=== PATIENT | female | born 1975 | race Caucasian/White ===

== ENCOUNTER 2016-08-03 03:06 | Observation (INO) | payer OTHER ==
[2016-08-03 03:20] VITALS: BMI 56.5
[2016-08-03] MEDS ORDERED: ONDANSETRON 4 MG/2 ML VIAL IVPUSH ONE (03:35)
[2016-08-03] MEDS ORDERED: morphine CARPU-JECT 4 MG/1 ML DISP.SYRIN IVPUSH ONE (03:35)
[2016-08-03] MEDS ORDERED: SODIUM CHLORIDE 1,000 ML IV STA (03:35)
[2016-08-03] MEDS ORDERED: ONDANSETRON 4 MG/2 ML VIAL ONE (03:39)
[2016-08-03] MEDS ORDERED: morphine CARPU-JECT 2 MG/1 ML DISP.SYRIN ONE (03:39)
[2016-08-03 03:45] LABS: BASOPHIL 0.7 % (0-2.0); EOSINOPHIL 3.7 % (0-4.5); MCH 25.2 pg (25.7-33.7); MCHC 32.5 g/dl (32.0-36.0); MEAN CELL VOLUME 77.7 fl (80-96); MEAN PLT VOLUME 7.5 fl (7.5-11.1); NEUTROPHILS 65.6 % (42.8-82.8); PLATELET COUNT 242 K/MM3 (134-434); RDW 15.7 % (11.6-15.6); WHITE BLOOD COUNT 7.1 K/mm3 (4.0-10.0)
[2016-08-03 03:54] LABS: URINE APPEARANCE SLCLOUDY; URINE BILIRUBIN NEGATIVE (NEGATIVE); URINE COLOR LTYELLOW; URINE GLUCOSE (UA) NEGATIVE (NEGATIVE); URINE KETONE NEGATIVE (NEGATIVE); URINE NITRITE NEGATIVE (NEGATIVE); URINE UROBILINOGEN NEGATIVE E.U./dl (0.2-1.0)
[2016-08-03 03:58] LABS: URINE BLOOD 3+ (NEGATIVE); URINE LEUK ESTERASE 1+ (NEGATIVE); URINE PROTEIN 2+ (NEGATIVE)
[2016-08-03 04:00] LABS: URINE BACTERIA RARE /hpf (NONE SEEN); URINE MUCUS FEW; URINE RBC 420 /hpf (0-3); URINE WBC 20 /hpf (3-5)
[2016-08-03 04:23] LABS: ALBUMIN 3.5 g/dl (3.4-5.0); BILIRUBIN,TOTAL 0.3 mg/dL (0.2-1.0); CALCIUM 8.6 mg/dL (8.5-10.1); COCKROFT - GAULT 168.674; CREATININE 1.1 mg/dL (0.55-1.02); TOT PROT 7.4 g/dl (6.4-8.2)
--- NOTE | 2016-08-03 05:46 | PDOC ---
History of Present Illness - General Chief Complaint: Pain, Acute Stated Complaint: SIDE PAIN/VOMITING Time Seen by Provider: 08/03/16 03:20 History Source: Patient Exam Limitations: No Limitations - History of Present Illness Travel History: No Initial Comments: 08/03/16 05:55 41yo Female patient w/PmHx: Morbid Obesity, Recurrent Renal Colic with stent placement presents to ED c/o Lt flank pain radiating to Lt groin beginning tonight. Patient states she was woken up out of her sleep. Associated chills, vomiting. Patient denies any other complaints at this time. Quality: reports: moderate, sharpness Abdominal Pain Onset Location: reports: flank (Lt) Pain Radiation: reports: groin Activities at Onset: reports: sleep Treatment Prior to Arrive: worse with: analgesics, antacids, cold pack, heat, laxative, enema, other Aggravating Factors: worse with: None, Defecation, Eating, Emotional upset, Exertion, Terril, Movement, Voiding, Change in position Alleviating Factors: worse with: None, Belching, Shallow Breathing, Defecation, Eating, Holding Breath, Passing Gas, Change in Position, Rest, Voiding, Vomiting Past History - Travel Traveled outside of the country in the last 30 days: No Close contact w/someone who was outside of country & ill: No - Past Medical History Allergies/Adverse Reactions: Allergies Allergy/AdvReac Type Severity Reaction Status Date / Time tamsulosin HCl [From Flomax] Allergy Severe Swelling Verified 08/03/16 04:05 meperidine HCl [From Demerol] Allergy Intermediate Swelling Verified 08/03/16 04 :05 ciprofloxacin Allergy Verified 08/03/16 04:05 Anemia: Yes Asthma: No Cancer: No Cardiac Disorders: No CVA: No COPD: No CHF: No Dementia: No Diabetes: No GI Disorders: No Disorders: Yes (KIDNEY STONES x4 with stents) HTN: No Hypercholesterolemia: No Kidney Stones: Yes Liver Disease: No Suicide Attempt (Hx): No Seizures: No Thyroid Disease: No - Surgical History Abdominal Surgery: No Appendectomy: No Cardiac Surgery: No Cholecystectomy: No Lung Surgery: No Neurologic Surgery: No Orthopedic Surgery: No - Reproductive History (#): 5 Para: 4 Spontaneous : 1 - Immunization History Immunization Up to Date: Yes - Psycho/Social/Smoking Cessation Hx Anxiety: No Suicidal Ideation: No Smoking Status: No Smoking History: Never smoked Have you smoked in the past 12 months: No Number of Cigarettes Smoked Daily: 0 Information on smoking cessation initiated: No Hx Alcohol Use: No Drug/Substance Use Hx: No Substance Use Type: None Abd/GI Specific PMHX - Complaint Specific PMHX Colitis: No Diverticulitis: No Gall Bladder Disease: No GERD: No Hepatitis: No Irritable Bowel Synd (IBS): No Pancreatitis: No GI Ulcer Disease: No Review of Systems - Review of Systems Able to Perform ROS?: Yes Is the patient limited Estonian proficient: No Constitutional: Yes: Chills. No: Fever Respiratory: No: Cough, Shortness of Breath, Stridor, Wheezing Cardiac (ROS): No: Chest Pain, Palpitations, Chest Tightness ABD/GI: Yes: Nausea, Vomiting, Abdominal cramping (Lt Groin). No: Constipated, Diarrhea, Poor Appetite, Poor Fluid Intake : Yes: Dysuria, Flank Pain (Lt). No: Burning, Hematuria Musculoskeletal: Yes: Back Pain All Other Systems: Reviewed and Negative *Physical Exam - Vital Signs Last Vital Signs Temp Pulse Resp BP Pulse Ox 98.9 F 92 H 20 149/76 98 08/03/16 03:18 08/03/16 03:18 08/03/16 03:18 08/03/16 03:18 08/03/16 03:18 - Physical Exam General Appearance: Yes: Nourished, Appropriately Dressed, Apparent Distress, Moderate Distress. No: Mild Distress, Severe Distress Neck: positive: Trachea midline, Supple. negative: Lymphadenopathy (R), Lymphadenopathy (L) Respiratory/Chest: positive: Lungs Clear, Normal Breath Sounds. negative: Chest Tender, Respiratory Distress, Accessory Muscle Use, Labored Respiration, Rapid RR Cardiovascular: positive: Regular Rhythm, Regular Rate Gastrointestinal/Abdominal: positive: Normal Bowel Sounds, Soft. negative: Distended, Guarding, Rebound, Tenderness Musculoskeletal: positive: Normal Inspection, CVA Tenderness, CVA Tenderness (L) . negative: CVA Tenderness (R), Decreased Range of Motion, Vertebral Tenderness Extremity: positive: Normal Capillary Refill, Normal Inspection, Normal Range of Motion. negative: Pedal Edema, Swelling, Calf Tenderness, Erythema, Inflammation Integumentary: positive: Normal Color, Dry, Warm Neurologic: positive: skin diver II-XII NML intact, Fully Oriented, Alert, Normal Mood/ Affect, Normal Response, Motor Strength 07/04 ED Treatment Course - LABORATORY CBC & Chemistry Diagram: 08/03/16 03:25 08/03/16 03:25 - ADDITIONAL ORDERS Additional order review: Laboratory Results 08/03/16 08/03/16 03:25 03:25 Sodium 142 Potassium 4.1 Chloride 109 H Carbon Dioxide 27 Anion Gap 6 L BUN 17 Creatinine 1.1 H Creat Clearance w eGFR 54.74 Random Glucose 111 H D Calcium 8.6 Total Bilirubin 0.3 AST 14 L ALT 21 Alkaline Phosphatase 79 D Total Protein 7.4 Albumin 3.5 Urine Color Ltyellow Urine Appearance Slcloudy Urine pH 5.0 Urine Protein 2+ H Urine Glucose (UA) Negative Urine Ketones Negative Urine Blood 3+ H Urine Nitrite Negative Urine Bilirubin Negative Urine Urobilinogen Negative Ur Leukocyte Esterase 1+ H Urine RBC 420 Urine WBC 20 Ur Epithelial Cells Rare Urine Bacteria Rare Urine Mucus Few Urine HCG, Qual Negative 08/03/16 03:25 RBC 4.41 MCV 77.7 L MCHC 32.5 RDW 15.7 H MPV 7.5 Neutrophils % 65.6 D Lymphocytes % 24.3 D Monocytes % 5.7 D Eosinophils % 3.7 D Basophils % 0.7 - RADIOLOGY Radiology Studies Ordered: Category Date Time Status ABDOMEN & PELVIS CT W/O CONTR [CT] Stat CT Scan 08/03/16 03:35 Taken - Medications Given in the ED: ED Medications Discontinued Medications Generic Name Dose Route Start Last Admin Trade Name Freq PRN Reason Stop Dose Admin Sodium Chloride 1,000 mls @ 1,000 mls/hr 08/03/16 03:35 08/03/16 03:47 Normal Saline - IV 08/03/16 04:34 1,000 mls/hr ASDIR STA Administration Morphine Sulfate 4 mg 08/03/16 03:35 08/03/16 03:47 Morphine Injection - IVPUSH 08/03/16 03:36 4 mg ONCE ONE Administration Ondansetron HCl 4 mg 08/03/16 03:35 08/03/16 03:47 Zofran Injection IVPUSH 08/03/16 03:36 4 mg ONCE ONE Administration
--- NOTE | 2016-08-03 08:49 | PN ---
Teaching Attending Note Name of Resident: Jaskaran Vivar ATTENDING PHYSICIAN STATEMENT I saw and evaluated the patient. I reviewed the resident's note and discussed the case with the resident. I agree with the resident's findings and plan as documented. SUBJECTIVE:c/o L flank pain radiating to her groin which woke her up out of her sleep. assoc with nausea/vomiting and chills. has significant hx of recurrent kidney stones on both sides. has had stents and lithotripsy. denies Cp, SOb, fever, chills, dysuria, hematuria. symptoms now resolved after passage of stone. OBJECTIVE: Last Vital Signs Temp Pulse Resp BP Pulse Ox 97.8 F 92 H 63 H 123/70 95 08/03/16 07:26 08/03/16 03:18 08/03/16 07:26 08/03/16 07:26 08/03/16 07:26 General NAD CV S1 S2 + Lungs CTA B/L no wheezing/rales/rhonchi Abdomen soft NT/ND no CVA tenderness no flank tenderness obese Extremities no pedal edema ASSESSMENT AND PLAN: 41yo F with PMH recurrent nephrolithasis s/p stents and lithotripsy and morbid obesity presented to the ER with L flank pain 1. L nephrolithasis- as per ER signout has L obstructing stone seen on CT scan. no official read. prior to my arrival pt has passed stone. symptoms resolved. spoke with Dr Sanchez who agrees pt can be sent home and follow up in urology office this week. will send stone down for composition. encourage free water intake. pain control with motrin as needed. 2. Morbid obesity- lifestyle modification. 3. d/c home with urology follow up
[2016-08-03 09:13] VITALS: BP 118/79; PULSE 65; TEMP 98
--- NOTE | 2016-08-03 12:06 | DS ---
Physical Exam: SUBJECTIVE: Patient seen and examined at bedside in ER. She stated she has long h/o kidney stone with stent and came in to the ER due to intractable L flank pain this AM which woke her up from sleep. OBJECTIVE: Vital Signs Period Temp Pulse Resp BP Sys/Vila Pulse Ox Last 24 Hr 98 F 65 19 118/79 98 PHYSICAL EXAM GENERAL: The patient is awake, alert, and fully oriented, in no acute distress. HEAD: Normal with no signs of trauma. EYES: PERRL, extraocular movements intact, sclera anicteric, conjunctiva clear. ENT: Ears normal, nares patent, oropharynx clear without exudates, moist mucous membranes. NECK: Trachea midline, full range of motion, supple. LUNGS: Breath sounds equal, clear to auscultation bilaterally, no wheezes, no crackles, no accessory muscle use. HEART: Regular rate and rhythm, S1, S2 without murmur, rub or gallop. ABDOMEN: Soft, LLQ tenderness, L CVA tenderness, non-distended, normoactive BS. SKIN: Warm, dry, normal turgor, no rashes or lesions noted. LABS HOSPITAL COURSE: Date of Admission:08/03/16 Patient is a 41 yo F with a significant PMHx of Gout and recurrent uric acid nephrolithiasis who presented to the ED for left flank pain radiating to the left lower abdomen and found to have partially obstructing stones on the CT scan. Fluids and pain control were given in the ED and patient has remained hemodynamically stable. Her symptoms have subsided completely in the ED. She was given urine strainer and has spontaneously passed a stone. She's now in stable condition to be discharged home and follow up with Dr. Yadav as outpatient. She's given ibuprofen 600mg for pain control as needed. Date of Discharge: 08/03/16 Minutes to complete discharge: 35 Discharge Summary Reason For Visit: RENAL COLIC, KIDNEY STONE Current Active Problems Kidney stone (Chronic) Condition: Stable - Instructions Diet, Activity, Other Instructions: Instruction for continuing care: You were seen in the ED for kidney stone. You received pain relief and fluid and you passed the stone. The stone has been sent to the lab for analysis and Dr. Yadav will be able to see the report. Please see Dr. Yadav as soon as possible for further management. You may take ibuprofen 600mg as needed for pain. Referrals: Krish Yadav MD [Staff Physician] - Jatinder Sanchez MD [Staff Physician] - Disposition: HOME - Home Medications Comprehensive Discharge Medication List: Ambulatory Orders Ibuprofen [Motrin -] 600 mg PO TID #21 tablet 08/03/16 This patient is new to me today: Yes Date on this admission: 08/03/16 Emergency Visit: Yes ED Registration Date: 08/03/16 Care time: The patient presented to the Emergency Department on the above date and was hospitalized for further evaluation of their emergent condition. Critical Care patient: No - Discharge Referral Referred to [facility] No
--- NOTE | 2016-08-05 14:40 | PATH ---
Surgical Pathology Report Patient Name: JENNIFER LOPEZ Med. Rec. #: [id number] /Age/Gender: 1975 (Age: 41) / F Account: [id number] Location: EMERGENCY ROOM Taken: 08/03/2016 Received: 08/04/2016 Reported: 08/05/2016 Physicians: Samantha Pressley M.D. Specimen(s) Received KIDNEY STONES Clinical History Kidney stone passed spontaneously Final Diagnosis KIDNEY STONE: CALCULUS (GROSS EXAM). SPECIMEN SENT FOR CHEMICAL ANALYSIS. Electronically Signed Ramana Dickson M.D. Gross Description Received fresh, labeled with the patient's name and indicated on the requisition to be kidney stone, is a 0.5 cm in greatest dimension pathak, irregular calculus which is sent for chemical analysis. 08/04/201608/04/2016
[2016-08-08 14:18] LABS: COLOR Orange (.); SIZE 7x4x2 mm (.); URIC ACID 100 % (.)
== END 2016-08-03 09:20 | disposition home or self-care (01) ==
LOC: JER 03:06 → JERBED 07:44
PROVIDERS: ADMIT Internal Medicine; ATTEND Internal Medicine
PROC: 3E033NZ Introduction of Analgesics, Hypnotics, Sedatives into Peripheral Vein, Percutaneous Approach (ICD-10-PCS; principal; 2016-08-03)
PROC: 3E033GC Introduction of Other Therapeutic Substance into Peripheral Vein, Percutaneous Approach (ICD-10-PCS; 2016-08-03)
PROC: 3E0337Z Introduction of Electrolytic and Water Balance Substance into Peripheral Vein, Percutaneous Approach (ICD-10-PCS; 2016-08-03)
DX: N20.0 Calculus of kidney (principal); E66.01 Morbid (severe) obesity due to excess calories; Z68.43 Body mass index [BMI] 50.0-59.9, adult; Z87.442 Personal history of urinary calculi; Z86.2 Personal history of diseases of the blood and blood-forming organs and certain disorders involving the immune mechanism; Z88.8 Allergy status to other drugs, medicaments and biological substances; Z96.0 Presence of urogenital implants
CPT/HCPCS: 36415; 74176-TC; 80053; 81003; 81015; 82360; 84703; 85025; 88300-TC; 99283-25; G0378

== ENCOUNTER 2016-11-21 20:39 | Emergency (ER) | payer OTHER ==
[2016-11-21 21:03] VITALS: BP 125/77; PULSE 72; TEMP 98.4; BMI 56.5
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
[2016-11-21 22:21] LABS: PH,URINE 5.5 (5.0-8.0); URINE APPEARANCE CLEAR; URINE BILIRUBIN NEGATIVE (NEGATIVE); URINE BLOOD 3+ (NEGATIVE); URINE COLOR LT. YELLOW; URINE GLUCOSE (UA) NEGATIVE (NEGATIVE); URINE KETONE NEGATIVE (NEGATIVE); URINE LEUK ESTERASE NEGATIVE (NEGATIVE); URINE NITRITE NEGATIVE (NEGATIVE); URINE UROBILINOGEN 0.2 mg/dL (0.2-1.0)
[2016-11-21 22:23] LABS: URINE PROTEIN 2+ (NEGATIVE)
[2016-11-21 22:37] LABS: URINE BACTERIA RARE /hpf (NONE SEEN); URINE MUCUS RARE; URINE RBC 58 /hpf (0-3); URINE WBC 10 /hpf (3-5)
[2016-11-21] MEDS ORDERED: ACETAMINOPHEN 500 MG TABLET (FP) PO ONE (22:54)
[2016-11-21] MEDS ORDERED: ACETAMINOPHEN 500 MG TABLET (FP) ONE (22:57)
== END 2016-11-21 23:43 | disposition home or self-care (01) ==
LOC: JERFT 20:39
DX: S20.219A Contusion of unspecified front wall of thorax, initial encounter (principal); N20.0 Calculus of kidney; Z87.442 Personal history of urinary calculi; V43.52XA Car driver injured in collision with other type car in traffic accident, initial encounter; Y92.488 Other paved roadways as the place of occurrence of the external cause; Y93.89 Activity, other specified
CPT/HCPCS: 71020-TC; 74176-TC; 81003; 81015; 84703; 99281-25

== ENCOUNTER 2017-08-09 19:17 | Day surgery (SDC) | payer OTHER ==
[2017-08-09 19:31] VITALS: BMI 58.1
--- NOTE | 2017-08-09 19:34 | PDOC ---
History of Present Illness - General Chief Complaint: Pain, Acute Stated Complaint: PAIN Time Seen by Provider: 08/09/17 19:33 - History of Present Illness Initial Comments: 08/09/17 19:51 The patient is a 42 year old female with a history of Kidney stones who presents for evaluation of left flank pain, nausea, vomiting. The patient reports sudden onset of sharp left sided flank pain with radiation into the her groin beginning several hours ago with associated nausea and multiple episodes of non-bilious, non-bloody vomiting prompting her presentation to the ED for further evaluation. She notes that the pain is similar to her prior kidney stones for which she has required stenting in the past. The patient notes that her urologist is Dr. Yadav. The patient otherwise denies fevers, chills, SOB, chest pain, or changes with urination or bowel movements Past History - Past Medical History Allergies/Adverse Reactions: Allergies Allergy/AdvReac Type Severity Reaction Status Date / Time tamsulosin HCl [From Flomax] Allergy Severe Swelling Verified 08/09/17 19:25 meperidine HCl [From Demerol] Allergy Intermediate Swelling Verified 08/09/17 19 :25 ciprofloxacin Allergy Verified 08/09/17 19:25 Home Medications: Ambulatory Orders NK [No Known Home Medication] 08/09/17 Anemia: No Asthma: No Cancer: No Cardiac Disorders: No CVA: No COPD: No CHF: No Dementia: No Diabetes: No GI Disorders: No Disorders: Yes (KIDNEY STONES x4 with stents) HTN: No Hypercholesterolemia: No Kidney Stones: Yes Liver Disease: No Seizures: No Thyroid Disease: No - Surgical History Abdominal Surgery: No Appendectomy: No Cardiac Surgery: No Cholecystectomy: No Lung Surgery: No Neurologic Surgery: No Orthopedic Surgery: No - Reproductive History (#): 5 Para: 4 Spontaneous : 1 - Immunization History Immunization Up to Date: Yes - Suicide/Smoking/Psychosocial Hx Smoking Status: No Smoking History: Never smoked Have you smoked in the past 12 months: No Number of Cigarettes Smoked Daily: 0 Hx Alcohol Use: No Drug/Substance Use Hx: No Substance Use Type: None Review of Systems - Review of Systems Comments:: 08/09/17 19:55 Constitutional: No fevers, chills, fatigue, malaise HEENT: No Rhinorrhea, nasal congestion, visual changes Cardiovascular: No chest pain, syncope, palpitations, lightheadedness Respiratory: No Cough, SOB, Hemoptysis, Gastrointestinal: Nausea, vomiting. No Constipation, Diarrhea, Melena Genitourinary: Left Flank Pain. No Dysuria, Frequency, Urgency, Hesitancy, Hematuria, Musculoskeletal: No Myalgia, arthralgia Skin: No rashes, itching, bruising, pallor Neurologic: No Headache, Dizziness, Numbness, Weakness, or Tingling Psychiatric: No Hallucinations. No SI or HI *Physical Exam - Vital Signs Last Vital Signs Temp Pulse Resp BP Pulse Ox 98.1 F 67 18 151/102 99 08/09/17 19:27 08/09/17 19:27 08/09/17 19:27 08/09/17 19:27 08/09/17 19:27 - Physical Exam Comments: 08/09/17 19:55 General Appearance: Nourished. No Apparent Distress HEENT: EOMI, YOUSUF. No Pharyngeal Erythema, Tonsillar Exudate, Tonsillar Erythema Neck: No Cervical Lymphadenopathy Respiratory/Chest: Lungs Clear, Normal Breath Sounds. No Crackles, Rales, Rhonchi, Wheezing Cardiovascular: Regular Rhythm, Regular Rate. No Murmur, Gallops, Rubs Gastrointestinal/Abdominal: Normal Bowel Sounds, Soft. Mild tenderness to deep palpation in the LLQ on exam. No Guarding, Rebound, Musculoskeletal: No CVA Tenderness Extremity: Normal Capillary Refill Integumentary: Normal Color, Dry, Warm Neurologic: Fully Oriented, Alert, Normal Mood/Affect, Normal Response, ED Treatment Course - LABORATORY CBC & Chemistry Diagram: 08/10/17 07:30 08/10/17 07:30 Medical Decision Making - Medical Decision Making 08/09/17 19:56 The patient is a 42 year old female with a history of Kidney stones who presents for evaluation of left flank pain, nausea, vomiting. Differential includes but is not limited to: Kidney Stones, Pyelonephritis, UTI, Infectious, Metabolic derangement. Given the patient's history and physical exam, it is possible her symptoms are due to a kidney stone. We will obtain a cbc, cmp, ua , serum preg, renal CT to evaluate further. We will treat the patient with iv fluids, iv tylenol, zofran and continue to monitor and reassess. 08/09/17 20:18 CBC, cmp are unremarkable. UA demonstrates RBC. Renal CT demonstrates a 5mm stone on the left as preliminarily read by our radiologist. The patient reports continued pain despite medication and has required morphine for management. We believe she requires admission for urology evaluation. We discussed the case with the admitting team who accepted the patient for admission. *DC/Admit/Observation/Transfer Diagnosis at time of Disposition: Kidney stone - Discharge Dispostion Condition at time of disposition: Stable Decision to Admit order: Yes - Referrals - Patient Instructions - Post Discharge Activity
[2017-08-09] MEDS ORDERED: SODIUM CHLORIDE 1,000 ML IV STA (19:40)
[2017-08-09] MEDS ORDERED: ONDANSETRON 4 MG/2 ML VIAL IVPUSH ONE ×2 (19:40→23:10)
[2017-08-09] MEDS ORDERED: ACETAMINOPHEN 1000 MG/100 ML VIAL (NON FORMULARY) IVPB ONE (19:41)
[2017-08-09] MEDS ORDERED: ACETAMINOPHEN INJECTION 100 ML IVPB ONE (19:55)
[2017-08-09] MEDS ORDERED: ONDANSETRON 4 MG/2 ML VIAL ONE ×2 (19:56→23:12)
[2017-08-09 19:59] LABS: BASO % 0.8 % (0-2.0); EOS % 2.1 % (0-4.5); HEMATOCRIT 34.7 % (32.4-45.2); HEMOGLOBIN 11.4 GM/dL (10.7-15.3); LYMPH % 14.1 % (8-40); MCH 25.9 pg (25.7-33.7); MCHC 32.9 g/dl (32.0-36.0); MEAN CELL VOLUME 78.9 fl (80-96); MONO % 3.8 % (3.8-10.2); NEUT % 79.2 % (42.8-82.8); PLATELET COUNT 255 K/MM3 (134-434); RBC 4.39 M/mm3 (3.60-5.2); WHITE BLOOD COUNT 7.3 K/mm3 (4.0-10.0)
[2017-08-09 20:34] LABS: ALBUMIN 3.5 g/dl (3.4-5.0); ALK PHOS 72 U/L (45-117); ANION GAP 7 (8-16); BILIRUBIN,TOTAL 0.4 mg/dL (0.2-1.0); BLOOD UREA NITROGEN 14 mg/dL (7-18); CALCIUM 8.4 mg/dL (8.5-10.1); CHLORIDE 106 mmol/L (98-107); CO2 27 mmol/L (21-32); CREATININE 1.3 mg/dL (0.55-1.02); GLUCOSE,RANDOM 115 mg/dL (74-106); POTASSIUM 4.5 mmol/L (3.5-5.1); SGOT/AST 26 U/L (15-37); SGPT/ALT 25 U/L (12-78); SODIUM 140 mmol/L (136-145); TOT PROT 7.6 g/dl (6.4-8.2)
[2017-08-09 20:52] LABS: URINE APPEARANCE CLEAR; URINE BILIRUBIN NEGATIVE (<2.0 mg/dL); URINE COLOR STRAW; URINE GLUCOSE (UA) NEGATIVE (NEGATIVE); URINE KETONE NEGATIVE (NEGATIVE); URINE LEUK ESTERASE NEGATIVE (NEGATIVE); URINE NITRITE NEGATIVE (NEGATIVE); URINE UROBILINOGEN NEGATIVE mg/dL (0.2-1.0)
[2017-08-09 21:20] LABS: URINE PROTEIN 1+ (NEGATIVE)
[2017-08-09] MEDS ORDERED: KETOROLAC TROMETHAMINE 30 MG/1 ML VIAL IVPUSH ONE (21:20)
[2017-08-09] MEDS ORDERED: KETOROLAC TROMETHAMINE 30 MG/1 ML VIAL ONE (21:24)
[2017-08-09 21:48] LABS: EPI CELLS RARE /HPF (FEW); URINE MUCUS RARE
[2017-08-09] MEDS ORDERED: morphine CARPU-JECT 4 MG/1 ML DISP.SYRIN IVPUSH ONE (23:10)
[2017-08-09] MEDS ORDERED: morphine SULFATE 4 MG/ML VIAL ONE (23:12)
--- NOTE | 2017-08-10 00:09 | PN ---
Teaching Attending Note Name of Resident: Genet Taylor ATTENDING PHYSICIAN STATEMENT I saw and evaluated the patient. I reviewed the resident's note and discussed the case with the resident. I agree with the resident's findings and plan as documented. SUBJECTIVE: Patient is a 42 year old woman with a history of Kidney stones who presents for evaluation of left flank pain, nausea, vomiting. The patient reports sudden onset of sharp left sided flank pain with radiation into the her groin beginning several hours ago with associated nausea and multiple episodes of non- bilious, non-bloody vomiting prompting her presentation to the ED for further evaluation. She notes that the pain is similar to her prior kidney stones for which she has required multiple ureteral stents. She says her stones are uric acid and her MD prescribed a Vegan diet for her to help. She is currently on oral doxycycline for bronchitis. Denies fevers, chills, SOB, chest pain, or changes with urination or bowel movements. OBJECTIVE: Morbidly obese, in no acute distress. Vital Signs Period Temp Pulse Resp BP Sys/Vila Pulse Ox Last 24 Hr 98.1 F 67 18 151/102 99 HEENT: No Jaundice, eye redness or discharge, PERRLA, EOMI. Normocephalic, atraumatic. External ears are normal and hearing is grossly intact. No nasal discharge. Neck: Supple, nontender. No palpable adenopathy or thyromegaly. No JVD Chest: Good effort. Clear to auscultation and percussion. Heart: Regular. No S3, rub or murmur Abdomen: Not distended, soft, tender lower abdomen; no HSM. No rebound or guarding. Normoactive bowel sounds. Ext: Peripheral pulses intact. No leg edema. Skin: Warm and dry. No petechiae, rash or ecchymosis. Neuro: Alert. Oriented x3. CN 2-12 grossly intact. Sensation grossly intact in all four extremities and DTR are symmetric. Home Medications Medication Instructions Recorded NK [No Known Home Medication] 08/09/17 Abnormal Lab Results 08/09/17 08/09/17 08/09/17 19:45 19:45 20:35 MCV 78.9 L RDW 16.0 H MPV 7.0 L Anion Gap 7 L Creatinine 1.3 H Random Glucose 115 H Calcium 8.4 L Urine Protein 1+ H Urine Blood 2+ H ASSESSMENT AND PLAN: 1. Obstructing Kidney Stone - CT abdomen shows an obstructing left kidney stone at the U/V junction with left hydronephrosis. She also has hematuria with no evidence of UTI. Will continue pain control, IV NS, check uric acid and consult urology. 2. KERRY - Etiology unclear, since she does not have bilateral obstruction. Consult nephrology for further workup. 3. Bronchitis - Feeling better - continue doxycycline 100mg po bid. 4. Morbid obesity - Provide her all the necessary assistance to facilitate weight loss. 5. DVT prophylaxis - Heparin 5000u sq tid 6. Advance directives - Full code
--- NOTE | 2017-08-10 01:44 | PDOC ---
Attending Attestation - [facility] HPI: 08/10/17 01:44 The patient is a 42 year old female with past medical history of Kidney stones X4 w/ stents presents to the emergency department with Left flank pain. The patient reports pain to the left flank that radiates to the left groin region, associated with nausea w/ episodes of nonbilious nonbloody vomiting. The patient reports similar previous incident which was due to Kidney stones. The patient was concerned and wanted to get the pain evaluated. The patient reports she is currently on doxycycline for bronchitis. The patient reports a stone extraction procedure done July of last year. Denies fever, chills, cough or headache. Denies chest pain or sob. Denies dysuria, hematuria, frequency or urgency to urinate. Allergies: tamsulosin HCl, meperidine HCl, and ciprofloxacin Social history: None reported Surgical history: None reported PCP: Dr. Naa Acosta Urology: Krish Yadav MD - Physicial Exam PE: 08/10/17 01:44 GENERAL: Well developed, well nourished. Awake and alert. No acute distress. HEENT: Normocephalic, atraumatic. PERRLA, EOMI. No conjunctival pallor. Sclera are non- icteric. Moist mucous membranes. Oropharynx is clear. NECK: Supple. Full ROM. No JVD. Carotid pulses 2+ and symmetric, without bruits. No thyromegaly. No lymphadenopathy. CARDIOVASCULAR: Regular rate and rhythm. No murmurs, rubs, or gallops. Distal pulses are 2+ and symmetric. PULMONARY: No evidence of respiratory distress. Lungs clear to auscultation bilaterally. No wheezing, rales or rhonchi. ABDOMINAL: (+) Left flank pain. Vomiting resolved. Soft. Distended. No rebound or guarding. No organomegaly. Normoactive bowel sounds. MUSCULOSKELETAL Normal range of motion at all joints. No bony deformities or tenderness. No CVA tenderness. EXTREMITIES: No cyanosis. No clubbing. No edema. No calf tenderness. SKIN: Warm and dry. Normal capillary refill. No rashes. No jaundice. NEUROLOGICAL: Alert, awake, appropriate. Cranial nerves 2-12 intact. No deficits to light touch and temperature in face, upper extremities and lower extremities. No motor deficits in the in face, upper extremities and lower extremities. Normoreflexic in the upper and lower extremities. Normal speech. Toes are down- going bilaterally. Gait is normal without ataxia. PSYCHIATRIC: Cooperative. Good eye contact. Appropriate mood and affect. - Medical Decision Making 08/10/17 01:44 Documentation prepared by Judi Ellsworth, acting as medical practice assistant for Aracelis Grullon MD. <Judi Ellsworth - Last Filed: 08/10/17 01:44> - Resident Resident Name: Lamberto Zuniga - ED Attending Attestation I have performed the following: I have examined & evaluated the patient, The case was reviewed & discussed with the resident, I agree w/resident's findings & plan, Exceptions are as noted - Medical Decision Making pt admitted to med/surg for further mgmt 08/10/17 22:53 <Aracelis Grullon - Last Filed: 08/10/17 22:54>
[2017-08-10] MEDS ORDERED: morphine SULFATE 4 MG/ML VIAL IVPUSH PRN ×2 (01:57→18:34)
[2017-08-10] MEDS ORDERED: ACETAMINOPHEN 325 MG TABLET (FP) PO PRN ×2 (01:57→18:34)
[2017-08-10] MEDS ORDERED: ONDANSETRON 4 MG/2 ML VIAL IVPUSH PRN ×2 (01:57→18:24)
[2017-08-10] MEDS ORDERED: SODIUM CHLORIDE 1,000 ML IV SCH ×2 (02:00→18:34)
--- NOTE | 2017-08-10 02:44 | HP ---
CHIEF COMPLAINT: left flank pain PCP: Dr Naa Acosta [phone] HISTORY OF PRESENT ILLNESS: The patient is a 42 year old female with a significant PMH of nephrolithiasts, s /p multiple stents, CKD, morbid obesity, that presents to the hospital complaining of left flank pain that started at 4:30 PM. The pain was sharp, 10/ 10 located on left back, radiating to groin. No aggravating/alleviating factors. She started experiencing nausea and multiple episodes of non bilious, non bloody emesis. She states that she has at lest 3 episodes of renal colic a year. She follows urologist and [employer] Technician who resommended new vegan diet for her but she hasn't started that yet. She also reports seeing small stones in her urine, "Copper color". She had uric acid stones in the past. The patient also visited Urgent Care 2 days ago after she started experiencing productive cough 3 days ago. The patient was told in that strep throat is negative and that she has bronchitis, started on Doxycycline 100 mg BID. She brings up yellow sputum and experiences chills and sore throat. Her daughter has been diagnosed with strep throat recently and is taking Augumentin. The patient denies hematuria, dysuria, muscle pain, chest pain, SOB, palpitations. 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 Allergies tamsulosin HCl [From Flomax] Allergy (Severe, Verified 08/09/17 19:25) Swelling THROAT SWELLED;FACIAL EDEMA meperidine HCl [From Demerol] Allergy (Intermediate, Verified 08/09/17 19:25) Swelling ciprofloxacin Allergy (Verified 08/09/17 19:25) HOME MEDICATIONS: Home Medications Medication Instructions Recorded NK [No Known Home Medication] 08/09/17 REVIEW OF SYSTEMS CONSTITUTIONAL: chills, Absent: fever, diaphoresis, generalized weakness, malaise, loss of appetite, weight change HEENT: Absent: rhinorrhea, nasal congestion, throat pain, throat swelling, difficulty swallowing, mouth swelling, ear pain, eye pain, visual changes CARDIOVASCULAR: Absent: chest pain, syncope, palpitations, irregular heart rate, lightheadedness , peripheral edema RESPIRATORY: Absent: cough, shortness of breath, dyspnea with exertion, orthopnea, wheezing GASTROINTESTINAL:nausea, vomiting, Absent: abdominal pain, abdominal distension, diarrhea, constipation, melena, hematochezia GENITOURINARY: flank pain Absent: dysuria, frequency, urgency, hesitancy, hematuria, genital pain MUSCULOSKELETAL: Absent: myalgia, arthralgia, joint swelling, back pain, neck pain SKIN: Absent: rash, itching, pallor HEMATOLOGIC/IMMUNOLOGIC: Absent: easy bleeding, easy bruising, lymphadenopathy, frequent infections ENDOCRINE: Absent: unexplained weight gain, unexplained weight loss NEUROLOGIC: Absent: headache, focal weakness or paresthesias, dizziness, unsteady gait PSYCHIATRIC: Absent: anxiety, depression PHYSICAL EXAMINATION Vital Signs - 24 hr 08/09/17 08/10/17 19:27 01:17 Temperature 98.1 F Pulse Rate 67 Pulse Rate [ 68 Right Radial] Respiratory 18 18 Rate Blood Pressure 151/102 Blood Pressure 128/78 [Right Arm] O2 Sat by Pulse 99 98 Oximetry (%) GENERAL: Awake, alert, and fully oriented, in no acute distress. HEAD: Normal with no signs of trauma. EYES: Pupils equal, round and reactive to light, extraocular movements intact, sclera anicteric, conjunctiva clear. No lid lag. EARS, NOSE, THROAT: Ears normal, nares patent, oropharynx clear without exudates. Moist mucous membranes. NECK: Normal range of motion, supple without lymphadenopathy, JVD, or masses. LUNGS: Breath sounds equal, diminished to auscultation bilaterally. No wheezes, and no crackles. No accessory muscle use. HEART: Regular rate and rhythm, normal S1 and S2 without murmur, rub or gallop. ABDOMEN: Obese, soft, nontender, not distended, normoactive bowel sounds, no guarding, no rebound, no masses. No hepatomegaly or splenomegaly. MUSCULOSKELETAL: Normal range of motion at all joints. No bony deformities or tenderness. No CVA tenderness on my physical exam on left side. UPPER EXTREMITIES: No peripheral edema. LOWER EXTREMITIES: 2+ pulses, warm, well-perfused. No calf tenderness. No peripheral edema. NEUROLOGICAL: No facial asymmetry, no slurred speech, motor 5/5, sensation intact, gait not observed. PSYCHIATRIC: Cooperative. Good eye contact. Appropriate mood and affect. SKIN: Warm, dry, normal turgor, no rashes. Laboratory Results - last 24 hr 08/09/17 08/09/17 08/09/17 19:45 19:45 19:45 WBC 7.3 RBC 4.39 Hgb 11.4 Hct 34.7 MCV 78.9 L MCH 25.9 MCHC 32.9 RDW 16.0 H Plt Count 255 MPV 7.0 L Absolute Neuts (auto) 5.8 Neutrophils % 79.2 D Lymphocytes % 14.1 D Monocytes % 3.8 Eosinophils % 2.1 Basophils % 0.8 Nucleated RBC % 0 Sodium 140 Potassium 4.5 Chloride 106 Carbon Dioxide 27 Anion Gap 7 L BUN 14 Creatinine 1.3 H Creat Clearance w eGFR 44.92 Random Glucose 115 H Calcium 8.4 L Total Bilirubin 0.4 D AST 26 ALT 25 Alkaline Phosphatase 72 Total Protein 7.6 Albumin 3.5 Serum , Qual Negative Urine Color Urine Appearance Urine pH Ur Specific Monroe Urine Protein Urine Glucose (UA) Urine Ketones Urine Blood Urine Nitrite Urine Bilirubin Urine Urobilinogen Ur Leukocyte Esterase Urine WBC (Auto) Urine RBC (Auto) Ur Epithelial Cells Urine Mucus 08/09/17 20:35 WBC RBC Hgb Hct MCV MCH MCHC RDW Plt Count MPV Absolute Neuts (auto) Neutrophils % Lymphocytes % Monocytes % Eosinophils % Basophils % Nucleated RBC % Sodium Potassium Chloride Carbon Dioxide Anion Gap BUN Creatinine Creat Clearance w eGFR Random Glucose Calcium Total Bilirubin AST ALT Alkaline Phosphatase Total Protein Albumin Serum , Qual Urine Color Straw Urine Appearance Clear Urine pH 8.0 D Ur Specific Monroe 1.013 Urine Protein 1+ H Urine Glucose (UA) Negative Urine Ketones Negative Urine Blood 2+ H Urine Nitrite Negative Urine Bilirubin Negative Urine Urobilinogen Negative Ur Leukocyte Esterase Negative Urine WBC (Auto) 12 Urine RBC (Auto) 159 Ur Epithelial Cells Rare Urine Mucus Rare CT abdomen:: Mild left perinephric fat stranding may be due to pyelonephritis or hydronephrosis with moderate left hydronephrosis with a 5 mm stone in the distal left ureter near the left ureterovesicular junction. Hepatomegaly and steatosis with heterogeneous nonspecific density in the liver may be due to focal fatty sparing and a liver mass cannot be excluded. If clinically indicated a follow-up outpatient MRI Liver With Contrast may be needed. Mild nonspecific splenomegaly most likely due to portal venous hypertension. Right kidney nonobstructing nephrolithiasis with no hydronephrosis. Small hiatal hernia with mild circumferential wall thickening at the esophagogastric junction. Mild nonspecific enlargement of the fundal uterine myometrium may be due to fibroids. ASSESSMENT/PLAN: The patient is a 42 year old female with a significant PMH of nephrolithiasts, s /p multiple stents, CKD, morbid obesity, that presents to the hospital complaining of left flank pain that started few hours before presentation to the hospital. She is admitted for obstructing left kidney stone. Obstructing nephrolithiasis on left side: -the patient presented with another colic pain, confirmed with CT abdomen 5x5x5 mm stone in distal left ureter, UV junction, moderate hydronephrosis on left side. No infection, no elevated WBC, fever, dysuria, UA negative, no need for antibiotics. -continue NS at 150 cc/hr -continue Morphine and Tylenol for pain control -Zofran 4 mg for nausea -f/u Dr Hernandez-Urology recommendations -NPO for possible procedure in AM -type and screen and coags ordered Bronchitis: -continue Doxycycline 100 mg BID -f/u CXR in AM -f/u strep throat -sputum culture Acute on CKD: -Cr 1.3 today -possibly related morbid obesity, now elevated Cr due to acute colic attack -will continue hydration Morbid obesity: -BMI 58 -counseled about importanc e of weight loss, healthy diet and exercise H/o of gout; -not on medications at home -no joints affected History of fibroids: -recent vaginal bleeding, followed OBGYN, was on Iron pills -stable, no more bleeding -confirmed with CT abdomen DVT PPX: -heparin sq -SCDS F/E/N: NS/no changes/NPO Disposition: med surg Discussed with Dr Stevenson. Problem List - Problem (1) Kidney stone Code(s): N20.0 - CALCULUS OF KIDNEY (2) Recurrent nephrolithiasis Code(s): N20.0 - CALCULUS OF KIDNEY (3) Renal colic Code(s): N23 - UNSPECIFIED RENAL COLIC (4) Renal insufficiency Code(s): N28.9 - DISORDER OF KIDNEY AND URETER, UNSPECIFIED Visit type - Emergency Visit Emergency Visit: Yes ED Registration Date: 08/09/17 Care time: The patient presented to the Emergency Department on the above date and was hospitalized for further evaluation of their emergent condition. - New Patient This patient is new to me today: Yes Date on this admission: 08/10/17 - Critical Care Critical Care patient: No Hospitalist Screening - Colonoscopy Questionnaire Colonoscopy Questionnaire: Colonoscopy Questionnaire - Patient: 50 - 75 years old and never had a screening colonoscopy: No History of colon or rectal polyps, or CA: No History of IBD, Crohn's disease or UC: No History of abdominal radiation therapy as a child: No - Relative: 1 with colon or rectal CA, or polyps at age 60 or younger: No Colon or rectal CA diagnosed at age 45 or younger: No Multiple relatives with colon or rectal CA: No - Outcome: Screening Result: Negative Screen
[2017-08-10] MEDS: DOXYCYCLINE HYCLATE 100 MG CAPSULE PO SCH ×2 (06:15→17:43)
[2017-08-10] MEDS: HEPARIN NA (PORCINE) 5,000 UNITS/ML 1ML VIAL SQ SCH ×2 (06:15→13:15)
[2017-08-10 08:53] LABS: BASO % 0.3 % (0-2.0); EOS % 0.7 % (0-4.5); HEMATOCRIT 33.3 % (32.4-45.2); MCH 26.1 pg (25.7-33.7); MCHC 33.1 g/dl (32.0-36.0); MEAN PLT VOLUME 7.1 fl (7.5-11.1); MONO % 6.5 % (3.8-10.2); NEUT % 65.5 % (42.8-82.8); PLATELET COUNT 268 K/MM3 (134-434); RBC 4.21 M/mm3 (3.60-5.2); WHITE BLOOD COUNT 6.3 K/mm3 (4.0-10.0)
[2017-08-10 09:05] LABS: INR 1.06 (0.82-1.09)
[2017-08-10 09:06] LABS: ACTIVATED PTT 25.2 SECONDS (26.9-34.4)
[2017-08-10 09:10] LABS: ANION GAP 6 (8-16); BLOOD UREA NITROGEN 15 mg/dL (7-18); CALCIUM 8.2 mg/dL (8.5-10.1); CHLORIDE 106 mmol/L (98-107); CO2 27 mmol/L (21-32); CREATININE 1.3 mg/dL (0.55-1.02); GLUCOSE,RANDOM 89 mg/dL (74-106); MAGNESIUM 1.9 mg/dL (1.8-2.4); PHOSPHOROUS 3.1 mg/dL (2.5-4.9); POTASSIUM 4.3 mmol/L (3.5-5.1); SGOT/AST 20 U/L (15-37); SGPT/ALT 25 U/L (12-78); SODIUM 139 mmol/L (136-145)
[2017-08-10 09:12] LABS: ALK PHOS 63 U/L (45-117); BILIRUBIN,TOTAL 0.4 mg/dL (0.2-1.0); TOT PROT 6.9 g/dl (6.4-8.2)
--- NOTE | 2017-08-10 13:00 | HOSP ---
Physical Examination Vital Signs: Vital Signs Temperature 98.2 F 08/10/17 03:02 Pulse Rate 60 08/10/17 03:02 Respiratory Rate 18 08/10/17 09:00 Blood Pressure 155/97 08/10/17 03:02 O2 Sat by Pulse Oximetry (%) 98 08/10/17 09:00 Findings/Remarks: Subjective: The patient was seen and examined at the bedside, she reports some nausea after taking Doxycycline this morning. Current Medications Generic Name Dose Route Start Last Admin Trade Name Freq PRN Reason Stop Dose Admin Acetaminophen 650 mg 08/10/17 01:57 Tylenol - PO Q6H PRN PAIN LEVEL 4 - 6 Doxycycline Hyclate 100 mg 08/10/17 06:00 08/10/17 06:15 Vibramycin - PO 100 mg BID@0600,1800 MARGARET Administration Heparin Sodium (Porcine) 5,000 unit 08/10/17 06:00 08/10/17 06:15 Heparin - SQ 5,000 unit TID MARGARET Administration Sodium Chloride 1,000 mls @ 150 mls/hr 08/10/17 02:00 08/10/17 02:14 Normal Saline - IV 150 mls/hr ASDIR MARGARET Administration Morphine Sulfate 4 mg 08/10/17 01:57 Morphine Sulfate IVPUSH Q4H PRN PAIN LEVEL 6-10 Ondansetron HCl 4 mg 08/10/17 01:57 Zofran Injection IVPUSH Q6H PRN NAUSEA Objective: Vital Signs Period Temp Pulse Resp BP Sys/Vila Pulse Ox Last 24 Hr 98.1 F-98.2 F 60-68 18-20 128-155/78-102 98-99 Physical Exam: General: NAD, A&Ox3 CBCD WBC 6.3 K/mm3 (4.0-10.0) 08/10/17 07:30 RBC 4.21 M/mm3 (3.60-5.2) 08/10/17 07:30 Hgb 11.0 GM/dL (10.7-15.3) 08/10/17 07:30 Hct 33.3 % (32.4-45.2) 08/10/17 07:30 MCV 79.0 fl (80-96) L 08/10/17 07:30 MCHC 33.1 g/dl (32.0-36.0) 08/10/17 07:30 RDW 16.0 % (11.6-15.6) H 08/10/17 07:30 Plt Count 268 K/MM3 (134-434) 08/10/17 07:30 MPV 7.1 fl (7.5-11.1) L 08/10/17 07:30 CMP Sodium 139 mmol/L (136-145) 08/10/17 07:30 Potassium 4.3 mmol/L (3.5-5.1) 08/10/17 07:30 Chloride 106 mmol/L (98-107) 08/10/17 07:30 Carbon Dioxide 27 mmol/L (21-32) 08/10/17 07:30 Anion Gap 6 (8-16) L 08/10/17 07:30 BUN 15 mg/dL (7-18) 08/10/17 07:30 Creatinine 1.3 mg/dL (0.55-1.02) H 08/10/17 07:30 Creat Clearance w eGFR 44.92 (>60) 08/10/17 07:30 Random Glucose 89 mg/dL (74-106) 08/10/17 07:30 Calcium 8.2 mg/dL (8.5-10.1) L 08/10/17 07:30 Total Bilirubin 0.4 mg/dL (0.2-1.0) 08/10/17 07:30 AST 20 U/L (15-37) 08/10/17 07:30 ALT 25 U/L (12-78) 08/10/17 07:30 Alkaline Phosphatase 63 U/L (45-117) 08/10/17 07:30 Total Protein 6.9 g/dl (6.4-8.2) 08/10/17 07:30 Albumin 3.0 g/dl (3.4-5.0) L 08/10/17 07:30 Assessment: This is a 42 year old female with PMHx of nephrolithiasis (s/p multiple stents), CKD, morbid obesity, who presented to the ED with left flank pain radiating to the groin. Plan: 1) Left UVJ obstructing stone and moderate hydronephrosis - IV fluids - Pain management - NPO for possible urologic procedure today - F/u urology consult 2) Bronchitis - Improving - Continue Doxycycline 3) CKD - Cr around baseline, continue to monitor 4) Morbid obesity - Will give patient referral to Dr. Saamyoa for weight loss surgery 5) F/E/N: - Monitor electrolytes - NPO for now 6) Prophylaxis: - OOB ambulating - Hold all chemical DVT prophylaxis 2/2 possible urological procedure today CODE STATUS: FULL CODE Labs: CBC, BMP 08/10/17 07:30 08/10/17 07:30
--- NOTE | 2017-08-10 17:20 | CON.GU ---
Consult - History of Present Illness History of Present Illness: 42 yo female well known to me with recurrent nephrolithiaisis, now admitted with left renal colic secondary to a 7mm LDU stone. No fever/chills - Past Medical History Renal/: Yes: Renal Calculi ...LMP: 08/28/15 - Alcohol/Substance Use Hx Alcohol Use: No - Smoking History Smoking history: Never smoked Have you smoked in the past 12 months: No Aproximately how many cigarettes per day: 0 - Social History ADL: Independent History of Recent Travel: No Home Medications - Allergies Allergies/Adverse Reactions: Allergies Allergy/AdvReac Type Severity Reaction Status Date / Time tamsulosin HCl [From Flomax] Allergy Severe Swelling Verified 08/09/17 19:25 meperidine HCl [From Demerol] Allergy Intermediate Swelling Verified 08/09/17 19 :25 ciprofloxacin Allergy Verified 08/09/17 19:25 - Home Medications Home Medications: Ambulatory Orders NK [No Known Home Medication] 08/09/17 Family Disease History - Family Disease History Family Disease History: Heart Disease: Father Physical Exam- Vital Signs: Vital Signs Temperature 98.9 F 08/10/17 09:09 Pulse Rate 71 08/10/17 09:09 Respiratory Rate 18 08/10/17 09:09 Blood Pressure 152/97 08/10/17 09:09 O2 Sat by Pulse Oximetry (%) 98 08/10/17 09:00 Renal/: Yes: Hematuria Labs: CBC, BMP 08/10/17 07:30 08/10/17 07:30 Imaging - Results Cat Scan: Image Reviewed Problem List - Problems (1) Left ureteral calculus Assessment/Plan: in light of stone size and persistant pain, plan for cysto/left ureteroscopy/ laser litho/stent. pt wishes to proceed Code(s): N20.1 - CALCULUS OF URETER
[2017-08-10] MEDS ORDERED: BUPIVACAINE HCL/PF 0.5% (5MG/ML) 10 ML VIAL ONE (17:27)
[2017-08-10] MEDS ORDERED: MIDAZOLAM HCL 2 MG/2 ML SINGLE DOSE VIAL ONE ×2 (17:31→17:43)
[2017-08-10] MEDS ORDERED: ceFAZolin SODIUM 1 GM VIAL IVPB ONE (17:44)
[2017-08-10] MEDS ORDERED: ceFAZolin SODIUM 1 GM VIAL ONE (17:46)
[2017-08-10] MEDS ORDERED: ALBUTEROL SO4 0.083% IH SOL 2.5 MG/3 ML VIAL.NEB. NEB PRN ×2 (18:03→18:34)
--- NOTE | 2017-08-10 18:13 | OP ---
Operative Note - Note: Operative Date: 08/10/17 Pre-Operative Diagnosis: obstructing LDU stone Operation: cysto/left ureteroscopy/laser litho/stent Findings: LDU stone Post-Operative Diagnosis: Same as Pre-op Surgeon: Krish Yadav Anesthesia: General, Spinal Specimens Removed: stone Estimated Blood Loss (mls): 1 Drains & Tubes with Location: 7fr 24cm stent Operative Report Dictated: Yes
[2017-08-10] MEDS ORDERED: LACTATED RINGERS SOLUTION 1,000 ML IV SCH ×2 (18:15→18:30)
[2017-08-10] MEDS ORDERED: PROMETHAZINE HCL 25 MG/1 ML VIAL IVPB PRN (18:24)
[2017-08-10] MEDS ORDERED: oxyCODONE HCL 5 MG TABLET PO PRN (18:24)
--- NOTE | 2017-08-11 05:59 | OP ---
DATE OF OPERATION: DATE OF DICTATION: 08/11/2017 PREOPERATIVE DIAGNOSIS: Obstructing left distal ureteral stone. POSTOPERATIVE DIAGNOSIS: Obstructing left distal ureteral stone. PROCEDURE: Cystoscopy, retrograde pyelogram, left ureteroscopy, laser lithotripsy, stone basketing, stent placement. SURGEON: Yunior German MD INDICATIONS: Patient is a 42-year-old female with history of recurrent nephrolithiasis, now with obstructing left 7-mm distal ureteral stone. She was taken to the OR for ureteroscopy, laser lithotripsy, stone basketing, stent placement. Risks, benefits, and alternatives were discussed. DESCRIPTION OF PROCEDURE: After informed consent was obtained, patient was taken to the OR, placed supine on the OR table. After cardiac monitoring administered was established, she was given 2 g of Ancef and she was given spinal anesthetic. She was prepped and draped in the dorsal lithotomy position. The cystoscope was introduced without difficulty, and the bladder was visualized. No tumors or stones were noted in the bladder. Attention was turned to the left ureteral orifice. Contrast injected for retrograde pyelogram. There was hydronephrosis down to the level of the distal ureter where a was seen. Guidewire was advanced into the left renal pelvis. Alongside the guidewire, a semirigid ureteroscope was advanced to the distal ureter where the stone was seen impacted. Using the 365 holmium laser fiber, the stone was pulverized to fine dust of 1- to 2-mm fragments. Several of these fragments were removed and sent to Pathology for analysis. Repeat ureteroscopy revealed no incidents of any residual stone fragments. Ureteroscope was then removed, and a 7-Palauan 24-cm double pigtail stent was then advanced in a monorail fashion. Fluoroscopy confirmed this stent to be in good position. Patient was awoken from anesthesia and transferred to recovery room in stable condition. There were no complications. ESTIMATED BLOOD LOSS: Minimal. YUNIOR GERMAN M.D. STONEY/[id number]
[2017-08-11 08:00] LABS: CHLORIDE 106 mmol/L (98-107); POTASSIUM 4.1 mmol/L (3.5-5.1); SODIUM 139 mmol/L (136-145)
[2017-08-11 08:40] LABS: ANION GAP 8 (8-16); BLOOD UREA NITROGEN 12 mg/dL (7-18); CALCIUM 8.5 mg/dL (8.5-10.1); CO2 25 mmol/L (21-32); GLUCOSE,RANDOM 83 mg/dL (74-106)
--- NOTE | 2017-08-11 09:28 | DS ---
Physical Exam: SUBJECTIVE: Patient seen and examined. She feels well, min to no pain OBJECTIVE: Vital Signs Period Temp Pulse Resp BP Sys/Vila Pulse Ox Last 24 Hr 97.7 F-99.8 F 61-76 16-26 136-165/81-97 96-99 PE Neuro: alert, awake, cn 2-12 intact Pulm: CTAB CV: S1 s2 rrr no mrg Abd: s nt nd + bs : no flank tenderness ExT: warm, no le edema Laboratory Results - last 24 hr 08/10/17 08/11/17 07:30 06:00 Sodium 139 Potassium 4.1 Chloride 106 Carbon Dioxide 25 Anion Gap 8 BUN 12 Creatinine 1.0 Random Glucose 83 Calcium 8.5 Blood Type B POSITIVE Antibody Screen Negative HOSPITAL COURSE: Date of Admission:08/09/17 Date of Discharge: 08/11/17 Minutes to complete discharge: 37 Discharge Summary Reason For Visit: CALCULUS OF KIDNEY Current Active Problems Left ureteral calculus (Acute) Kidney stone (Chronic) Hospital Course: Initial Hospital Course: Briefly, this 42 year old woman with a history of Kidney stones who presented for evaluation of left flank pain, nausea, vomiting. The patient reported sudden onset of sharp left sided flank pain with radiation into the her groin beginning several hours ago with associated nausea and multiple episodes of non- bilious, non-bloody vomiting. Pain was similar to her prior kidney stones for which she has required multiple ureteral stents. She says her stones are uric acid and her MD prescribed a Vegan diet for her to help. She is currently on oral doxycycline for bronchitis. Subsequent Hospital Course/Progress Note/DC summary: Plan: 1. Left UVJ obstructing stone and moderate hydronephrosis - s/p cysto, laser litho with stent placement - Home ceftin 500mg bid x7 days - Thursday follow up with urology for stent removal, pt aware 2. Bronchitis - Stop doxy - Will continue with ceftin 3. KERRY - Resolved w fluids and resolution of obstruction Dispo: - Home w above follow up, abx and plan - Pt aware and agrees to above plan Condition: Stable - Instructions Diet, Activity, Other Instructions: Please return to the ED for any new, persistent, or worsening symptoms. Follow up with your PCP in 1 week Take antibiotics as directed and until completed Follow up with Dr. Yadav Thursday Take Tylenol for pain as needed every 4-6hr Referrals: Krish Yadav MD [Staff Physician] - 08/17/17 (call to make appt for stent removal for thursday ) Naa Acosta [Primary Care Provider] - Disposition: HOME - Home Medications Comprehensive Discharge Medication List: Ambulatory Orders Cefuroxime Axetil [Ceftin -] 500 mg PO Q12H #14 tablet 08/11/17 This patient is new to me today: Yes Date on this admission: 08/12/17 Emergency Visit: Yes Care time: The patient presented to the Emergency Department on the above date and was hospitalized for further evaluation of their emergent condition. Critical Care patient: No - Discharge Referral Referred to [facility] No
[2017-08-11] MEDS ORDERED: CEFUROXIME AXETIL 500 MG TABLET PO ONE (10:00)
[2017-08-11] MEDS ORDERED: DOXYCYCLINE HYCLATE 100 MG CAPSULE PO SCH (10:00)
[2017-08-11 10:23] VITALS: BP 160/89; PULSE 65; TEMP 99.3
--- NOTE | 2017-08-12 13:50 | PATH ---
Surgical Pathology Report Patient Name: JENNIFER LOPEZ Med. Rec. #: [id number] /Age/Gender: 1975 (Age: 42) / F Account: <[id number]> Location: EMERGENCY ROOM Taken: 08/10/2017 Received: 08/11/2017 Reported: 08/12/2017 Physicians: Ambrosio Pozo MD Specimen(s) Received LEFT URETHRAL STONE Clinical History Left ureteral stone Final Diagnosis LEFT URETERAL STONE: CALCULUS. GROSS EXAMINATION ONLY Electronically Signed Becky Coley M.D. Gross Description Specimen received in a container labeled with "left ureteral stone", consist of a calculus measuring 0.3 cm in greatest dimension. Gross examination only. KAYY/08/11/2017 [email or web address]/08/11/2017
--- NOTE | 2017-08-12 16:10 | PATH ---
Surgical Pathology Report Patient Name: JENNIFER LOPEZ Med. Rec. #: [id number] /Age/Gender: 1975 (Age: 42) / F Account: [id number] Location: AMBULATORY SURG Taken: 08/11/2017 Received: 08/11/2017 Reported: 08/12/2017 Physicians: Ambrosio Pozo ACNP Specimen(s) Received STONE Clinical History Calculi Final Diagnosis KIDNEY, STONE, REMOVAL: RENAL CALCULI. MACROSCOPIC DIAGNOSIS. Electronically Signed Janice Hernandez M.D. Gross Description Received in a container, labeled "stone analysis" are three stones ranging from 0.1 cm to 0.3 cm in greatest dimension. Gross examination only. The calculi are sent to analysis. KAYY/08/11/2017 [email or web address]/08/11/2017
[2017-08-21 16:28] LABS: URIC ACID 100 % (.); WEIGHT 41.7 mg (.)
== END 2017-08-11 10:28 | disposition home or self-care (01) ==
LOC: JER 19:17 → JERBED 23:59 → UNDOADMOB 23:59 → JASUSAT 23:59 → J8W 08-10 03:26 → JERBED 08-10 03:26 → JASUSAT 08-11 10:28 → UNDODISOB 08-11 10:28
PROVIDERS: ATTEND Nurse Practitioner Acute Care
PROC: 0TF78ZZ Fragmentation in Left Ureter, Via Natural or Artificial Opening Endoscopic (ICD-10-PCS; principal; 2017-08-09)
PROC: 0T778DZ Dilation of Left Ureter with Intraluminal Device, Via Natural or Artificial Opening Endoscopic (ICD-10-PCS; 2017-08-09)
DX: N20.1 Calculus of ureter (principal)
CPT/HCPCS: 36415; 71045-TC-FY; 74176; 76000-TC-FY; 80048; 80053; 81003; 81015; 82360; 83735; 84100; 84703; 85025; 85610; 85730; 86850; 86900; 86901; 87086; 88300-TC; 94760; 99285-25; J0131; J1644; J7030

== ENCOUNTER 2023-11-12 17:20 | Emergency (ER) | payer OTHER ==
[2023-11-12 17:38] VITALS: BP 165/102; PULSE 72; RESP 16; TEMP 98.5; BMI 64.5
[2023-11-12 18:45] LABS: BASO % 0.6 % (0-2.0); EOS % 3.4 % (0-4.5); HEMATOCRIT 34.4 % (32.4-45.2); HEMOGLOBIN 10.9 GM/dL (10.7-15.3); LYMPH % 23.7 % (8-40); MCH 24.3 pg (25.7-33.7); MCHC 31.7 g/dl (32.0-36.0); MEAN CELL VOLUME 76.8 fl (80-96); MEAN PLT VOLUME 6.9 fl (7.5-11.1); MONO % 6.2 % (3.8-10.2); NEUT % 66.1 % (42.8-82.8); PLATELET COUNT 351 10^3/uL (134-434); RBC 4.49 M/mm3 (3.60-5.2); RDW 16.1 % (11.6-15.6); WHITE BLOOD COUNT 8.1 K/mm3 (4.0-10.0)
[2023-11-12] MEDS ORDERED: ACETAMINOPHEN INJECTION 100 ML ONE (18:45)
[2023-11-12] MEDS: ACETAMINOPHEN 1000 MG/100 ML BAG IVPB ONE (18:51)
[2023-11-12 18:55] LABS: HCG,QUALITATIVE URINE Negative
[2023-11-12 19:01] LABS: PROTHROMBIN TIME (PATIENT) 11.5 SEC (9.7-13.0)
[2023-11-12 19:04] LABS: ACTIVATED PTT 28.6 SECONDS (25.2-36.5)
[2023-11-12 19:05] LABS: EPI CELLS >36 /uL (0-25.1); HYALINE CASTS 7 /uL (0-3.1); PH,URINE 5.5 (5.0-8.0); URINE APPEARANCE TURBID; URINE BACTERIA 75 /uL (0-1359); URINE BILIRUBIN NEGATIVE (NEGATIVE); URINE COLOR YELLOW; URINE GLUCOSE (UA) NEGATIVE (NEGATIVE); URINE KETONE TRACE (NEGATIVE); URINE LEUK ESTERASE 1+ (NEGATIVE); URINE NITRITE NEGATIVE (NEGATIVE); URINE PROTEIN 3+ (NEGATIVE); URINE UROBILINOGEN 0.2 mg/dL (0.2-1.0); URINE WBC 121 /uL (0-25.8)
[2023-11-12 19:21] LABS: ALBUMIN 3.4 g/dl (3.4-5.0); BLOOD UREA NITROGEN 14.2 mg/dL (7-18); CALCIUM 9.4 mg/dL (8.5-10.1)
[2023-11-12 19:23] LABS: CREATININE 1.1 mg/dL (0.55-1.3)
[2023-11-12 19:24] LABS: BILIRUBIN,TOTAL 0.3 mg/dL (0.2-1)
[2023-11-12 19:26] LABS: TOT PROT 7.8 g/dl (6.4-8.2)
[2023-11-12 19:48] LABS: URINE CRYSTALS FEW AMORPHJOUS /hpf; URINE RBC 26.3 /uL (0-23.9)
[2023-11-12] MEDS ORDERED: KETOROLAC TROMETHAMINE 15 MG/ML VIAL ONE (23:25)
[2023-11-12] MEDS: KETOROLAC TROMETHAMINE 15 MG/ML VIAL IVPUSH ONE (23:32)
== END 2023-11-12 23:35 | disposition home or self-care (01) ==
LOC: JER 17:20
PROC: 3E033NZ Introduction of Analgesics, Hypnotics, Sedatives into Peripheral Vein, Percutaneous Approach (ICD-10-PCS; principal; 2023-11-12)
PROC: 3E0333Z Introduction of Anti-inflammatory into Peripheral Vein, Percutaneous Approach (ICD-10-PCS; 2023-11-12)
DX: R10.31 Right lower quadrant pain (principal); R30.0 Dysuria; N20.0 Calculus of kidney
CPT/HCPCS: 36415; 74176-TC; 76830-TC; 80053; 81003; 83690; 84703; 85025; 85610; 85730; 86850; 86900; 86901; 87086; 99284-25; J0131